=== PATIENT | female | born 1960 | race Caucasian/White ===

== ENCOUNTER 2019-05-03 15:52 | Inpatient (IN) | payer OTHER ==
[~2019-05-03] VITALS: Ht 167.6 cm; Wt 64.9 kg
[~2019-05-03 15:52] MED LIST: LEVO750T25 PO
[2019-05-03] MEDS ORDERED: ONDANSETRON 4 MG INJ IV STA (17:36)
[2019-05-03] MEDS ORDERED: HYDROmorphONE 1 MG/ML SYG IV STA (17:36)
[2019-05-03] MEDS ORDERED: SOD CHLORIDE 0.9% 1,000 ML IV STA (17:36)
[2019-05-03] MEDS ORDERED: CEFEPIME 1GM/50 ML (PMX) 50 ML IVPB ONE (19:30)
[2019-05-03 20:50] VITALS: BP 136/71; PULSE 98; RESP 17
[2019-05-03 20:52] VITALS: Ht 167.6 cm; Wt 64.9 kg
[2019-05-03] MEDS: SOD CHLORIDE 0.9% 1,000 ML IV SCH (22:16)
[2019-05-03] MEDS ORDERED: NACL 0.9% 3 ML SYG IV SCH (22:30)
[2019-05-03] MEDS ORDERED: ACETAMINOPHEN 325 MG TAB PO PRN (22:30)
[2019-05-03] MEDS ORDERED: KETOROLAC 30 MG INJ IV PRN (22:30)
[2019-05-03] MEDS ORDERED: ONDANSETRON 4 MG INJ IV PRN (22:30)
[2019-05-04] MEDS: morphine 4 MG/ML VIAL IV PRN ×4 (00:12→18:35)
[2019-05-04 02:00] VITALS: BP 114/59; PULSE 89; RESP 17
[2019-05-04 08:38] VITALS: BP 149/66; PULSE 86; RESP 18
[2019-05-04] MEDS ORDERED: CEFTRIAXONE 1 GM/50 ML (PMX) 50 ML IVPB SCH (09:00)
[2019-05-04] MEDS ORDERED: HEPARIN 5,000 UNIT/1 ML VIAL SC SCH (09:00)
[2019-05-04] MEDS: SOD CHLORIDE 0.9% 1,000 ML IV SCH ×2 (09:24→17:07)
[2019-05-04 14:00] VITALS: BP 122/64; PULSE 89; RESP 18
== END 2019-05-04 18:55 | disposition home or self-care (01) | DRG 690 ==
LOC: E/R 15:52 → PP2 19:18
PROVIDERS: ADMIT Internal Medicine; ATTEND Internal Medicine
DX: N39.0 Urinary tract infection, site not specified (principal); Z93.6 Other artificial openings of urinary tract status; N20.0 Calculus of kidney; B96.20 Unspecified Escherichia coli [E. coli] as the cause of diseases classified elsewhere; N26.1 Atrophy of kidney (terminal); F41.9 Anxiety disorder, unspecified; F17.200 Nicotine dependence, unspecified, uncomplicated
CPT/HCPCS: 36415; 74176; 80053; 81001; 81025; 83690; 83735; 84100; 85025; 85610; 85730; 87086; 96374; 96375; J0692; J0696; J1170; J1644; J1885; J2270; J2405; J7030